=== PATIENT | male | born 1940 | race Hispanic/Latino ===

== ENCOUNTER 2017-12-17 11:10 | Day surgery (SDC) | payer MEDICARE ==
[~2017-12-17 11:10] MED LIST: AK-Dilate ONE; IOPIDINE ONE; MYDRIACYL ONE
[2017-12-17] MEDS ORDERED: IOPIDINE OS ONE (12:15)
[2017-12-17] MEDS ORDERED: MYDRIACYL OS ONE (12:16)
[2017-12-17] MEDS ORDERED: AK-Dilate OS ONE (12:16)
[2017-12-17 17:08] VITALS: BP 110/60
== END 2017-12-17 12:58 | disposition home or self-care (01) ==
LOC: OR 11:10
PROVIDERS: ATTEND Ophthalmology
DX: E11.36 Type 2 diabetes mellitus with diabetic cataract (principal); H26.492 Other secondary cataract, left eye; I10 Essential (primary) hypertension; E78.00 Pure hypercholesterolemia, unspecified; G47.30 Sleep apnea, unspecified; M19.90 Unspecified osteoarthritis, unspecified site; Z99.89 Dependence on other enabling machines and devices; Z79.899 Other long term (current) drug therapy; Z87.891 Personal history of nicotine dependence
CPT/HCPCS: 82962